=== PATIENT | male | born 1955 | race Caucasian/White ===

== ENCOUNTER 2016-12-17 23:52 | Emergency (ER) | payer OTHER ==
--- NOTE | 2016-12-18 00:06 | ED.PDOC ---
History of Present Illness - General Chief Complaint: Lower Extremity Injury Stated Complaint: pain right 5th toe Time Seen by Provider: 12/18/16 00:01 Source: patient Exam Limitations: no limitations - History of Present Illness Initial Comments: Tree Joshi 61 y/o male stated that he accidentally tripped on a wooden stool with his right foot at home .Denies history of fall. Occurred: just prior to arrival, this evening Pain - Lower Extremity: mild: Right Foot Method of Injury: other - tripped Improving Factors: rest Worsening Factors: movement Allergies/Adverse Reactions: Allergies NO KNOWN ALLERGY Allergy (Verified 12/18/16 00:35) Home Medications: Ambulatory Orders Chlorthalidone 25 mg PO DAILY@0700 02/07/14 Metoprolol Tartrate 100 mg PO BID 02/07/14 Acetaminophen W/ Codeine [Tylenol W/ CODEINE #3] 1 ea PO Q6HRS PRN #14 Review of Systems - Review of Systems Constitutional: States: no symptoms reported EENTM: States: no symptoms reported Respiratory: States: no symptoms reported Cardiology: States: no symptoms reported Gastrointestinal/Abdominal: States: no symptoms reported Genitourinary: States: no symptoms reported Musculoskeletal: States: see HPI Past Medical History (General) - Patient Medical History Hx Congestive Heart Failure: No Hx Diabetes: No Surgical History: other - bunionectomy - Vaccination History Hx Influenza Vaccination: No Hx Pneumococcal Vaccination: No - Social History Hx Tobacco Use: No Hx Alcohol Use: No Hx Substance Use: No Hx Substance Use Treatment: No Hx Depression: No Family Medical History - Family History Mother Family History: Unknown Living Status: Unknown Physical Exam - Physical Exam General Appearance: Alert, Anxious, No apparent distress Eyes, Ears, Nose, Throat: PERRL/EOMI, normal ENT inspection Neck: non-tender, full range of motion Cardiovascular/Respiratory: regular rate, rhythm, no M/R/G, normal peripheral pulses Gastrointestinal/Abdominal: non-tender, no organomegaly, no hernia Thigh/Hip: no evidence of injury Leg: no evidence of injury Knee: no evidence of injury Foot: normal inspection, bone tenderness - 5th toe right Neuro/Tendon: normal sensation, normal motor functions Progress - Progress Progress: 12/18/16 01:06 Vital Signs - 8 hr 12/17/16 23:55 Temperature 97.6 F Pulse Rate [ 66 monitor] Respiratory 20 Rate Blood Pressure 144/88 [Left Arm] O2 Sat by Pulse 96 Oximetry Noel taping right 4th/5th toe done by nurse - EKG/XRAY/CT XRAY: right foot-fracture proximal phalanx right 5th toe Departure - Departure Clinical Impression: Fracture of toe of right foot Qualifiers: Encounter type: initial encounter Toe: lesser toe Fracture type: closed Phalanx : proximal Fracture alignment: displaced Qualified Code(s): S92.511A - Displaced fracture of proximal phalanx of right lesser toe(s), initial encounter for closed fracture Contusion of toe of right foot Qualifiers: Encounter type: initial encounter Toe: lesser toe Damage to nail status: without damage Qualified Code(s): S90.121A - Contusion of right lesser toe(s) without damage to nail, initial encounter Time of Disposition: :01 Disposition: Discharge to Home or Self Care Condition: Good Instructions: DI for Toe Fracture, Toe Fracture Referrals: Trey Fuller MD [Primary Care Provider] - 1-2 Weeks Prescriptions: Acetaminophen W/ Codeine [Tylenol W/ CODEINE #3] 1 ea PO Q6HRS PRN #14 PRN Reason: Pain Home Medications: Ambulatory Orders Chlorthalidone 25 mg PO DAILY@0700 02/07/14 Metoprolol Tartrate 100 mg PO BID 02/07/14 Acetaminophen W/ Codeine [Tylenol W/ CODEINE #3] 1 ea PO Q6HRS PRN #14 Additional Instructions: Follow up with primary 12/20/2016 for referral to orthopedist
--- NOTE | 2016-12-18 00:28 | RAD ---
EXAM DESCRIPTION: Foot,Right 3 Views CLINICAL HISTORY: 61 years ,Male foot injury hit the right foot on the bed with swelling in the right toe COMPARISON: None. TECHNIQUE: RIGHT foot, Three view FINDINGS: There is an obliquely oriented fracture of the fifth proximal phalanx. No radiopaque foreign object noted. No significant ankle effusion noted. Small calcaneal spur. Spurring of the superior margin of the talus. Well-corticated bony density along the second metatarsophalangeal joint appears chronic. IMPRESSION: Obliquely oriented minimally displaced fracture of the fifth proximal phalanx Electronically signed by: Jackelyn Melissa 12/18/2016 12:27 AM CDT
[2016-12-18 00:32] VITALS: BP 144/88; TEMP 97.6; O2SAT 96
[2016-12-18] MEDS ORDERED: HYDROCOD/APAP 10/325 (ER DISP) # 3 tablets PO ONE (01:01)
== END 2016-12-18 01:18 | disposition home or self-care (01) ==
LOC: ER 23:52
DX: S92.511A Displaced fracture of proximal phalanx of right lesser toe(s), initial encounter for closed fracture (principal); S90.121A Contusion of right lesser toe(s) without damage to nail, initial encounter; W22.8XXA Striking against or struck by other objects, initial encounter; Y99.9 Unspecified external cause status

== ENCOUNTER 2017-06-05 15:14 | Emergency (ER) | payer OTHER ==
[2017-06-05] MEDS ORDERED: TETANUS,DIPHTHERIA,PERTUSSIS 1 EA SYG IM ONE (15:29)
[2017-06-05 15:30] VITALS: BP 126/84; TEMP 96.7; O2SAT 94
[2017-06-05] MEDS ORDERED: CHLORHEXIDINE GLUCONATE 4 % 15 ML UD TOP ONE (15:30)
[2017-06-05] MEDS ORDERED: LIDOCAINE 1% 10 ML VIAL INJ ONE (15:30)
--- NOTE | 2017-06-05 15:30 | ED.PDOC ---
History of Present Illness - General Chief Complaint: Laceration Stated Complaint: laceration Time Seen by Provider: 06/05/17 15:29 Source: patient Exam Limitations: no limitations - History of Present Illness Initial Comments: Tree Joshi 61 y/o male stated he accidentally cut his 5th digit on a sharp door latch at home. Timing/Duration: just prior to arrival Severity: mild Location: hands - 5th digit Improving Factors: nothing Worsening Factors: movement Associated Symptoms: other - laceration Allergies/Adverse Reactions: Allergies NO KNOWN ALLERGY Allergy (Verified 12/18/16 00:35) Home Medications: Ambulatory Orders Metoprolol Tartrate 200 mg PO DAILY 02/07/14 Acetaminophen W/ Codeine [Tylenol w/Codeine 300-30 mg] 1 tab PO TID PRN #7 tab 06/05/17 Pantoprazole Sodium 40 mg PO DAILY 06/05/17 Review of Systems - Review of Systems Constitutional: States: no symptoms reported EENTM: States: no symptoms reported Skin: States: see HPI, other - laceration All other Systems: Reviewed and Negative, No Change from Baseline Past Medical History (General) - Patient Medical History Hx Seizures: No Hx Stroke: No Hx Dementia: No Hx Asthma: No Hx of COPD: No Hx Cardiac Disorders: No Hx Congestive Heart Failure: No Hx Pacemaker: No Hx Hypertension: Yes Hx Thyroid Disease: No Hx Diabetes: No Hx Gastroesophageal Reflux: No Hx Renal Disease: Yes Hx Cancer: No Hx of HIV: No Hx Hepatitis C: No Hx MRSA: No Hx Other PMH: Yes - dvt post surgery Surgical History: other - bunionectomy - Vaccination History Hx Tetanus, Diphtheria Vaccination: - unknown Hx Influenza Vaccination: No Hx Pneumococcal Vaccination: No - Social History Hx Tobacco Use: Yes Hx Chewing Tobacco Use: No Hx Alcohol Use: No Hx Substance Use: No Hx Substance Use Treatment: No Hx Depression: No Hx Physical Abuse: No Hx Emotional Abuse: No Hx Suspected Abuse: No Family Medical History - Family History Mother Family History: Unknown Living Status: Unknown Physical Exam - Physical Exam General Appearance: Alert, Comfortable, Frail Eyes, Ears, Nose, Throat Exam: normal ENT inspection Neck: supple Cardiovascular/Chest: regular rate, rhythm, no murmur Respiratory: lungs clear, normal breath sounds Gastrointestinal/Abdominal: non tender, soft Back Exam: normal inspection Extremity: non-tender, no pedal edema, no calf tenderness Neurologic: alert, oriented x 3 Skin Exam: warm/dry, normal color Skin Problem Location: other - laceration left 5th digit Skin Character: other - laceration Progress - Progress Progress: 06/05/17 15:38 Last Vital Signs Temp 96.7 F L 06/05/17 15:25 Pulse 62 06/05/17 15:25 Resp 20 06/05/17 15:25 BP 126/84 06/05/17 15:25 Pulse Ox 94 L 06/05/17 15:25 Procedures - Laceration/Wound Repair Left Finger Wound Length (cm): 1.5 - left 5th little finger Wound's Depth, Shape: irregular Wound Explored: no foreign body removed Irrigated w/ Saline (cc's): 15 Betadine Prep?: No - hibiclens Anesthesia: 1% Lidocaine Volume Anesthetic (cc's): 7 - digital nerve block Wound Repaired With: sutures Suture Size/Type: 4:0, prolene Number of Sutures: 7 Layer Closure?: No Deep Layer Suture Size/Type: 4:0 Sterile Dressing Applied?: Yes Departure - Departure Clinical Impression: Laceration of finger of left hand Qualifiers: Encounter type: initial encounter Finger: little finger Damage to nail status: unspecified Foreign body presence: without foreign body Qualified Code(s): S61.217A - Laceration without foreign body of left little finger without damage to nail, initial encounter Time of Disposition: 16:22 Disposition: Discharge to Home or Self Care Condition: Good Departure Forms: ED Discharge - Pt. Copy, Patient Portal Self Enrollment Instructions: DI for Laceration Repair Referrals: Trey Fuller MD [Primary Care Provider] - 1-2 Weeks Prescriptions: Acetaminophen W/ Codeine [Tylenol w/Codeine 300-30 mg] 1 tab PO TID PRN #7 tab PRN Reason: Pain Home Medications: Ambulatory Orders Metoprolol Tartrate 200 mg PO DAILY 02/07/14 Acetaminophen W/ Codeine [Tylenol w/Codeine 300-30 mg] 1 tab PO TID PRN #7 tab 06/05/17 Pantoprazole Sodium 40 mg PO DAILY 06/05/17 Additional Instructions: Removal of sutures 06/17/2017 [facility] [place];Elevate left hand 20 degrees at bedtime
[2017-06-05] MEDS ORDERED: HYDROcodone 7.5MG/APAP 325MG 1 EA TAB PO ONE (16:22)
[2017-06-05] MEDS ORDERED: CEPHALEXIN MONOHYDRATE 500 MG CAP PO ONE (16:24)
== END 2017-06-05 16:37 | disposition home or self-care (01) ==
LOC: ER 15:14
DX: S61.217A Laceration without foreign body of left little finger without damage to nail, initial encounter (principal); I10 Essential (primary) hypertension; Z04.1 Encounter for examination and observation following transport accident; Z86.718 Personal history of other venous thrombosis and embolism; W26.8XXA Contact with other sharp object(s), not elsewhere classified, initial encounter; Y92.009 Unspecified place in unspecified non-institutional (private) residence as the place of occurrence of the external cause

== ENCOUNTER → 2017-11-03 | Outpatient (CLI) | payer OTHER | LOC: GMAJ 11:36 | PROVIDERS: ATTEND Family Medicine | DX: Z00.00 Encounter for general adult medical examination without abnormal findings (principal) ==

== ENCOUNTER → 2018-11-14 | Outpatient (CLI) | payer SELFPAY | LOC: GMAL 14:14 | PROVIDERS: ATTEND Family Medicine | DX: Z00.00 Encounter for general adult medical examination without abnormal findings (principal); I10 Essential (primary) hypertension ==

== ENCOUNTER 2018-12-21 05:36 | Day surgery (SDC) | payer OTHER ==
[2018-12-21] MEDS ORDERED: LACTATED RINGERS 1,000 ML ONE (07:13)
[2018-12-21] MEDS ORDERED: ELECTROLYTE-A 1,000 ML IVS ONE (09:25)
[2018-12-21] MEDS ORDERED: PROPOFOL 200 MG/20 ML VIAL IV ONE (10:00)
[2018-12-21] MEDS ORDERED: LIDOCAINE 1% 10 ML VIAL INJ ONE (10:00)
--- NOTE | 2018-12-21 10:00 | OP ---
DATE OF PROCEDURE: 12/21/18 PREOPERATIVE DIAGNOSIS: 1. History of polyps. POSTOPERATIVE DIAGNOSIS: 1. History of polyps. PROCEDURE: 1. Colonoscopy with multiple biopsies. Please see details. SURGEON: Trey Raya MD COMPLICATIONS: None. ESTIMATED BLOOD LOSS : Minimal. SPECIMENS: As described. PLAN: Discharge. INDICATION: History of colonic polyps. Last scope was approximately 5 years ago. PROCEDURE: He was consented for the procedure. General anesthesia was induced. He had a good prep. We were able ultimately to get to the cecum with a little difficulty. There was a little trouble traversing from proximally initially, but that worked out. We began to find ultimately multiple polyps with the majority being in the rectosigmoid area. In the distal ascending colon, a 4 mm polyp was removed by snare and a 2 mm polyp at about 50 cm. In the mid transverse colon, there was an additional 2 to 2.5 mm polyp removed with two separate forceps biopsies. In the splenic flexure, an additional and then the distal descending is where we encountered multiple, at least 5 were taken, and evidence of complete excision. One was taken with a snare as it was about 3.5 to 4 mm. On retroflexion, the last two were identified in the rectum, one was more significant. It was removed with a snare completely and retrieved as well as a smaller one that was taken with the forceps. There was a little oozing from there, but overall it was stopping and did not appear to be grossly active. He was desufflated on the way out. He tolerated the procedure well and was then taken to Recovery to be discharged. #[id number] MTDD
[2018-12-21 10:50] VITALS: BP 129/76; TEMP 97.2; O2SAT 96
== END 2018-12-21 10:26 | disposition home or self-care (01) ==
LOC: AMB 05:36
PROVIDERS: ATTEND Surgery
DX: K63.5 Polyp of colon (principal); D12.2 Benign neoplasm of ascending colon; D12.8 Benign neoplasm of rectum; Z86.010 Personal history of colon polyps; I10 Essential (primary) hypertension; K21.9 Gastro-esophageal reflux disease without esophagitis; E66.9 Obesity, unspecified; Z68.28 Body mass index [BMI] 28.0-28.9, adult; Z80.0 Family history of malignant neoplasm of digestive organs; Z79.82 Long term (current) use of aspirin; Z79.899 Other long term (current) drug therapy; Z87.891 Personal history of nicotine dependence
CPT/HCPCS: 00811; 45380; 45385; J3490; J7120